=== PATIENT | male | born 1980 | race Two or more races ===

== ENCOUNTER 2025-01-27 12:01 | Emergency (ER) | payer MEDICAID, OTHER ==
[~2025-01-27] VITALS: Ht 172.7 cm; Wt 109.0 kg
--- NOTE | 2025-01-27 12:45 | ED.PDOC ---
General HPI Comments Ned Negrete is a 44-year-old male, with past medical history of HTN and BPH. The patient came to the ED with the chief complaint of 1 week of difficulty voiding, sensation of incomplete voiding and urinary retention associated with pelvic pressure. The patient reports he takes tamsulosin and finasteride with partial relief of his symptoms. Today, the patient report the urinary retention has increase, being able to void only small amount of urine and the pelvic pressure increased, this prompted his visit to the ED. The patient denies dysuria, hematuria, fever or other symptoms. Chief Complaint: Urinary Time Seen by MD: 12:06 Allergies: Coded Allergies: NO KNOWN ALLERGIES (Unverified , 01/27/25) Mode of Arrival: Ambulatory Past Medical History PAST MEDICAL HISTORY: HTN Past Medical History (Other): BPH Surgical History: Denies all surgeries Family History Family History (Other): Father with history of BPH Social History Smoker: Non-Smoker Alcohol: Denies ETOH Use Drugs: Denies Drug Use Lives In: Home Constitutional: denies: chills, diaphoresis, fatigue, fever, malaise, sweats, weakness, others EENTM: denies: blurred vision, double vision, ear bleeding, ear discharge, ear drainage, ear pain, ear ringing, eye pain, eye redness, hearing loss, mouth pain, mouth swelling, nasal discharge, nose bleeding, nose congestion, nose pain, photophobia, tearing, throat pain, throat swelling, voice changes, others Respiratory: denies: cough, hemoptysis, orthopnea, SOB at rest, shortness of breath, SOB with excertion, stridor, wheezing, others Cardiovascular: denies: chest pain, dizzy spells, diaphoresis, Dyspnea on exertion, edema, irregular heart beat, left arm pain, lightheadedness, palpitations, PND, syncope, others Gastrointestinal: denies: abdomen distended, abdominal pain, blood streaked bowels, constipated, diarrhea, dysphagia, difficulty swallowing, hematemesis, melena, nausea, poor appetite, poor fluid intake, rectal bleeding, rectal pain, vomiting, others Genitourinary: reports: others (Urinary retention, pelvic pain and pressure) Neurological: denies: dizziness, fainting, headache, left sided numbness, left sided weakness, numbness, paresthesia, pre-existing deficit, right sided numbness, right sided weakness, seizure, speech problems, tingling, tremors, weakness, others Musculoskeletal: denies: back pain, gout, joint pain, joint swelling, muscle pain, muscle stiffness, neck pain, others Integumetry: denies: bruises, change in color, change in hair/nails, dryness, laceration, lesions, lumps, rash, wounds, others Allergic/Immunocompromised: denies: Difficulty Healing, Frequent Infections, Hives, Itching, others Hematologic/Lymphatic: denies: anemia, blood clots, easy bleeding, easy bruising, swollen glands, others Endocrine: denies: excessive hunger, excessive sweating, excessive thirst, excessive urination, flushing, intolerance to cold, intolerance to heat, unexplained weight gain, unexplained weight loss, others Psychiatric: denies: anxiety, bipolar disorder, depression, hopeless, panic disorder, schizophrenia, sleepless, suicidal, others Physical Exam General Appearance: Mild Distress HEENT: Normal ENT Inspection, Pharynx Normal, TMs Normal Neck: Full Range of Motion, Non-Tender, Normal, Normal Inspection Respiratory: Chest Non-Tender, Lungs Clear, No Accessory Muscle Use, No Respiratory Distress, Normal Breath Sounds Cardiovascular: No Edema, No JVD, No Murmur, No Gallop, Normal Peripheral Pulses, Regular Rate/Rhythm Breast Exam: Deferred Gastrointestinal: No Organomegaly, Non Tender, No Pulsatile Mass, Normal Bowel Sounds, Soft, Suprapubic (Suprapubic distention and tenderness ) Genitalia: Deferred Pelvic: Deferred Rectal: Deferred Extremities: No calf tenderness, Normal capillary refill, Normal inspection, Normal range of motion, Non-tender, No pedal edema Neurologic: Alert, manufacturing production manager II-XII nml as Tested, No Motor Deficits, Normal Affect, Normal Mood, No Sensory Deficits Cerebellar Function: Normal Reflexes: Normal Skin: Dry, Normal Color, Warm Lymphatic: No Adenopathy Was a procedure done? Was a procedure done?: No Differential Diagnosis Kidney stone (Female): N/A Kidney stone (Male): N/A Penile/Scrotal: Other Urinary Problem (Male): Urinary Retention Urinary Problem (Female): N/A Other Differential Diagnosis #BPH #Urinary retention #R/O UTI X-Ray, Labs, Meds, VS Vital Signs Date Time Temp Pulse Resp B/P (MAP) Pulse Ox O2 Delivery O2 Flow Rate FiO2 01/27/25 12:03 97.3 107 18 149/95 97 97.3 Lab Test 01/27/25 14:27 01/27/25 13:25 Range/Units Urine Color Dark-yellow Yellow Urine Clarity Clear Clear Urine pH 6.0 5.0-9.0 Urine Specific [place] 1.028 1.001-1.035 Urine Protein 2+ H Negative Urine Ketones Trace Negative Urine Blood Negative Negative /uL Urine Nitrite Negative Negative Urine Bilirubin 1+ Negative Urine Urobilinogen 2 H Negative mg/dL Urine Leukocyte Esterase Negative Negative /uL Urine RBC 2 0 - 3 /hpf Urine Microscopic WBC 2 0-3 /HPF Urine Squamous Epithelial Cells Few <5 /hpf Urine Bacteria None seen None Seen /hpf Urine Hyaline Casts Few 0 - 2 /lpf Urine Mucus Few None Seen Urine Glucose Normal Normal mg/dL White Blood Count 7.4 4.4-10.8 10^3/uL Red Blood Count 5.62 4.5-5.90 10^6/uL Hemoglobin 14.1 13.5-17.5 g/dL Hematocrit 44.1 41.0-53.0 % Mean Corpuscular Volume 78.5 L 80.0-100.0 fL Mean Corpuscular Hemoglobin 25.1 L 28.0-32.0 pg Mean Corpuscular Hemoglobin Concent 31.9 L 32.0-36.0 g/dL Red Cell Distribution Width 17.8 H 11.8-14.3 % Platelet Count 168 140-450 10^3/uL Mean Platelet Volume 8.0 6.9-10.8 fL Neutrophils (%) (Auto) 78.7 37.0-80.0 % Lymphocytes (%) (Auto) 13.4 10.0-50.0 % Monocytes (%) (Auto) 7.2 0.0-12.0 % Eosinophils (%) (Auto) 0.1 0.0-7.0 % Basophils (%) (Auto) 0.6 0.0-2.0 % Neutrophils # (Auto) 5.8 1.6-8.6 10 ^3/uL Lymphocytes # (Auto) 1.0 0.4-5.4 10 ^3/uL Monocytes # (Auto) 0.5 0-1.3 10 ^3/uL Eosinophils # (Auto) 0 0-0.8 10 ^3/uL Basophils # (Auto) 0 0-0.2 10 ^3/uL Nucleated Red Blood Cells 0.1 % Sodium Level 138 136-145 mmol/L Potassium Level 3.5 3.5-5.1 mmol/L Chloride Level 101 98-107 mmol/L Carbon Dioxide Level 25 20-31 mmol/L Anion Gap 12 5-15 Blood Urea Nitrogen 20 9-23 mg/dL Creatinine 0.99 0.700-1.30 mg/dL Glomerular Filtration Rate Calc 96 >90 mL/min BUN/Creatinine Ratio 20.2 H 10.0-20.0 Serum Glucose 86 74-106 mg/dL Calcium Level 8.5 L 8.7-10.4 mg/dL Total Bilirubin 2.9 H 0.2-1.0 mg/dL Aspartate Amino Transferase (AST) 42 H 13-40 U/L Alanine Aminotransferase (ALT) 25 7-40 U/L Alkaline Phosphatase 97 46-116 U/L Total Protein 7.0 5.7-8.2 g/dL Albumin 3.6 3.2-4.8 g/dL X-Ray, Labs, Meds, VS Comment The patient was re-evaluated, patient feels better after heller catheter was placed, about 500ml of tubid urine was drained. UA is negative for UTI CBC WNL CMP: elevate billirubin, patient is already on treatment for this with PCP. Time of 1ST Reevaluation: 14:38 Reevaluation 1ST: Improved Patient Education/Counseling: Diagnosis, Treatment, Prognosis, Need For Follow Up Family Education/Counseling: No Family Present SEPSIS Sepsis Screen Date sepsis recognized/suspect: Jan 27, 2025 Time Sepsis recognized/suspect: 1205 Recent Procedure: No On Antibiotic Therapy: No Respiratory Rate >20: No Heart Rate >90: No Temp<36 C (96.8 F) or >38.3 C: No SBP <90 or MAP <65 mmHG: No New Acute Mental Status Change: No Is the patient on CPAP, BIPAP,: No Physician Orders Insert Heller Catheter STAT (01/27/25 12:42) Vital Signs Date Time Temp Pulse Resp B/P (MAP) Pulse Ox O2 Delivery O2 Flow Rate FiO2 01/27/25 12:03 97.3 107 18 149/95 97 97.3 Laboratory Tests Test 01/27/25 13:25 White Blood Count 7.4 10^3/uL (4.4-10.8) Departure 1 Departure Time of Disposition: 16:07 Impression: Primary Impression: Urinary retention with incomplete bladder emptying Additional Impression: BPH (benign prostatic hyperplasia) Disposition: HOME / SELF CARE / HOMELESS Condition: Good Referrals Referral for Urology, Doctor Jsohua ([facility], [facility]) in 3 days for Heller catheter check-up and management. Additional Instructions: Continue with Tamsulosin 0.4mg po qd Finasteride 5 mg po qd F/U with PCP Referral for Urology Dr. Lewis Discharged With: Self Comments Goals of care discussed with the patient > 35 min. Discussed plan of care with Dr. Camarena Code status: Full code PCP: ([facility]) Plan discussed with: Patient, the patient agrees with the plan. Critical Care Note Critical Care Time?: No Stability Stability form required: No Stable for transfer: N/A Unstable for transfer: N/A Heart Score Heart Score: Heart Score Response (Comments) Value History N/A 0 EKG N/A 0 Age N/A 0 Risk Factors N/A 0 Troponin N/A 0 Total 0 VICKI WHITFIELD RESIDENT Jan 27, 2025 12:45
[2025-01-27 13:53] LABS: Hematocrit 44.1 % (41.0-53.0); Hemoglobin 14.1 g/dL (13.5-17.5); Mean Corpuscular Hemoglobin 25.1 pg (28.0-32.0); Mean Corpuscular Volume 78.5 fL (80.0-100.0); Nucleated Red Blood Cells % 0.1 %
[2025-01-27 14:08] LABS: Alanine Aminotransferase 25 U/L (7-40); Albumin 3.6 g/dL (3.2-4.8); Alkaline Phosphatase 97 U/L (46-116); Anion Gap 12 (5-15); BUN/Creatinine Ratio 20.2 (10.0-20.0); Blood Urea Nitrogen 20 mg/dL (9-23); Calcium 8.5 mg/dL (8.7-10.4); Carbon Dioxide 25 mmol/L (20-31); Chloride 101 mmol/L (98-107); Glucose 86 mg/dL (74-106); Potassium 3.5 mmol/L (3.5-5.1); Sodium 138 mmol/L (136-145); Total Protein 7.0 g/dL (5.7-8.2)
[2025-01-27 14:09] LABS: Bilirubin, Total 2.9 mg/dL (0.2-1.0)
[2025-01-27 15:37] LABS: Urine Protein, UAD 2+ (Negative)
[2025-01-27 16:25] VITALS: BP 152/92; PULSE 98; RESP 16; TEMP 98.1; O2SAT 95
== END 2025-01-27 16:39 | disposition home or self-care (01) ==
LOC: ER 12:01
DX: R33.8 Other retention of urine (principal); N40.1 Benign prostatic hyperplasia with lower urinary tract symptoms; I10 Essential (primary) hypertension; Z79.899 Other long term (current) drug therapy
CPT/HCPCS: 36415; 51702; 80053; 81001; 85025; 99284; A4315

== ENCOUNTER 2025-01-27 21:47 | Emergency (ER) | payer MEDICAID ==
[2025-01-27 21:51] VITALS: BP 145/90; PULSE 112; RESP 18; TEMP 97.8; O2SAT 95
--- NOTE | 2025-01-27 22:10 | ED.PDOC ---
History of Present Illness HPI Comments Ned Negrete is a 44-year-old male, with past medical history of HTN and BPH. Patient is here for removal of the Ahn catheter. He says that he can make urine on his own, he will follow up with urologist. He denies any pelvic pain, pressure, urinary symptoms at this time. Denies fever or chills. Patient counseled regarding the need to come back to the ER in case of urinary retention, pelvic pressure, pain while urinating or hematuria. He reports taking tamsulosin and finasteride. Patient was recently seen in the ER few days back for 1 week of difficulty voiding, sensation of incomplete voiding and urinary retention associated with pelvic pressure. Ahn catheter was placed. Chief Complaint: Urinary Time Seen by MD: 21:50 Allergies: Coded Allergies: NO KNOWN ALLERGIES (Unverified , 01/27/25) Mode of Arrival: Ambulatory Severity: Mild Past Medical History PAST MEDICAL HISTORY: HTN Past Medical History (Other): Benign prostatic hyperplasia Surgical History: Denies all surgeries Family History Family History (Other): Father with history of BPH Social History Smoker: Non-Smoker Alcohol: Denies ETOH Use Drugs: Denies Drug Use Lives In: Home Constitutional: denies: chills, diaphoresis, fatigue, fever, malaise, sweats, weakness, others EENTM: denies: blurred vision, double vision, ear bleeding, ear discharge, ear drainage, ear pain, ear ringing, eye pain, eye redness, hearing loss, mouth pain, mouth swelling, nasal discharge, nose bleeding, nose congestion, nose pain, photophobia, tearing, throat pain, throat swelling, voice changes, others Respiratory: denies: cough, hemoptysis, orthopnea, SOB at rest, shortness of breath, SOB with excertion, stridor, wheezing, others Cardiovascular: denies: chest pain, dizzy spells, diaphoresis, Dyspnea on exertion, edema, irregular heart beat, left arm pain, lightheadedness, palpitations, PND, syncope, others Gastrointestinal: denies: abdomen distended, abdominal pain, blood streaked bowels, constipated, diarrhea, dysphagia, difficulty swallowing, hematemesis, me kendrick, nausea, poor appetite, poor fluid intake, rectal bleeding, rectal pain, vomiting, others Genitourinary: denies: burning, dysuria, flank pain, frequency, hematuria, incontinence, penile discharge, penile sore, pain, testicle pain, testicle swelling, urgency, others Neurological: denies: dizziness, fainting, headache, left sided numbness, left sided weakness, numbness, paresthesia, pre-existing deficit, right sided numbness, right sided weakness, seizure, speech problems, tingling, tremors, weakness, others Musculoskeletal: denies: back pain, gout, joint pain, joint swelling, muscle pain, muscle stiffness, neck pain, others Integumetry: denies: bruises, change in color, change in hair/nails, dryness, laceration, lesions, lumps, rash, wounds, others Allergic/Immunocompromised: denies: Difficulty Healing, Frequent Infections, Hives, Itching, others Hematologic/Lymphatic: denies: anemia, blood clots, easy bleeding, easy bruising, swollen glands, others Endocrine: denies: excessive hunger, excessive sweating, excessive thirst, excessive urination, flushing, intolerance to cold, intolerance to heat, unexplained weight gain, unexplained weight loss, others Psychiatric: denies: anxiety, bipolar disorder, depression, hopeless, panic disorder, schizophrenia, sleepless, suicidal, others Physical Exam General Appearance: No Apparent Distress, Normal HEENT: Normal ENT Inspection, Pharynx Normal, TMs Normal Neck: Full Range of Motion, Non-Tender, Normal, Normal Inspection Respiratory: Chest Non-Tender, Lungs Clear, No Accessory Muscle Use, No Respiratory Distress, Normal Breath Sounds Cardiovascular: No Edema, No JVD, No Murmur, No Gallop, Normal Peripheral Pulses, Regular Rate/Rhythm Breast Exam: Deferred Gastrointestinal: No Organomegaly, Non Tender, No Pulsatile Mass, Normal Bowel Sounds, Soft Genitalia: Deferred Pelvic: Deferred Rectal: Deferred Extremities: No calf tenderness, Normal capillary refill, Normal inspection, Normal range of motion, Non-tender, No pedal edema Musculoskeletal : Apperance: Normal Neurologic: Alert, game attendant II-XII nml as Tested, No Motor Deficits, Normal Affect, Normal Mood, No Sensory Deficits Cerebellar Function: Normal Reflexes: Normal Skin: Dry, Normal Color, Warm Lymphatic: No Adenopathy Was a procedure done? Was a procedure done?: No Differential Dx Considerations may include: Acute urinary retention/benign prostatic hyperplasia/UTI X-Ray, Labs, Meds, VS Vital Signs Date Time Temp Pulse Resp B/P (MAP) Pulse Ox O2 Delivery O2 Flow Rate FiO2 01/27/25 21:51 97.8 112 18 145/90 95 97.8 Time of 1ST Reevaluation: 23:00 Reevaluation 1ST: Resolved Patient Education/Counseling: Need For Follow Up Family Education/Counseling: No Family Present SEPSIS Sepsis Screen Date sepsis recognized/suspect: Jan 27, 2025 Time Sepsis recognized/suspect: 2151 Recent Procedure: No On Antibiotic Therapy: No Respiratory Rate >20: No Heart Rate >90: Yes Temp<36 C (96.8 F) or >38.3 C: No SBP <90 or MAP <65 mmHG: No New Acute Mental Status Change: No Is the patient on CPAP, BIPAP,: No Physician Orders Discontinue Ahn Catheter (01/27/25 22:09) Vital Signs Date Time Temp Pulse Resp B/P (MAP) Pulse Ox O2 Delivery O2 Flow Rate FiO2 01/27/25 21:51 97.8 112 18 145/90 95 97.8 Departure 1 Departure Time of Disposition: 23:15 Impression: Primary Impression: BPH (benign prostatic hyperplasia) Additional Impression: Encounter for Ahn catheter removal Disposition: 01 HOME / SELF CARE / HOMELESS Condition: Stable Referrals Follow up with primary care physician, urologist as soon as possible/within the next 3 days Discharged With: Self Critical Care Note Critical Care Time?: No Stability Stability form required: TEJAS Martines RESIDENT Jan 27, 2025 22:10
== END 2025-01-27 23:15 | disposition left against medical advice (07) ==
LOC: ER 21:47
DX: N40.1 Benign prostatic hyperplasia with lower urinary tract symptoms (principal); I10 Essential (primary) hypertension; Z46.6 Encounter for fitting and adjustment of urinary device; Z79.899 Other long term (current) drug therapy